=== PATIENT | female | born 1960 | race Caucasian/White ===

== ENCOUNTER → 2017-06-27 | Outpatient (REF) | payer BC ==
[~2017-06-27] MED LIST: CALTRATE; CHLOTHALIDONE; LORA0.5T; POTA20TA2; PROCHLORPERAZINE; PROPRANOLOL; THERGRAN; VICO5TAB
[2017-06-27 19:11] LABS: MEAN CORPUSCULAR HEMOGLOBIN 31.5 pg (27.0-33.0); MEAN CORPUSCULAR HGB CONC 32.7 g/dl (32.0-36.5); MEAN CORPUSCULAR VOLUME 96.3 fl (80.0-96.0); RED CELL DISTRIBUTION WIDTH 12.9 % (11.5-14.5); WHITE BLOOD COUNT 5.5 K/mm3 (4.0-10.0)
[2017-06-27 19:20] LABS: ALBUMIN 3.6 GM/DL (3.2-5.2); ALBUMIN/GLOBULIN RATIO 1.29 (1.00-1.93); ALKALINE PHOSPHATASE 96 U/L (45-117); ALT/SGPT 17 U/L (12-78); ANION GAP 11 MEQ/L (8-16); AST/SGOT 10 U/L (15-37); BILIRUBIN,TOTAL 0.3 MG/DL (0.2-1.0); BLOOD UREA NITROGEN 9 MG/DL (7-18); CALCIUM LEVEL 9.3 MG/DL (8.5-10.1); CARBON DIOXIDE LEVEL 26 MEQ/L (21-32); CHLORIDE LEVEL 109 MEQ/L (98-107); CREATININE FOR GFR 0.75 MG/DL (0.55-1.02); GLOMERULAR FILTRATION RATE > 60.0 (>51); GLUCOSE, FASTING 75 MG/DL (70-105); POTASSIUM SERUM 4.6 MEQ/L (3.5-5.1); SODIUM LEVEL 146 MEQ/L (136-145); TOTAL PROTEIN 6.4 GM/DL (6.4-8.2)
== END ==
LOC: M SFHCADAM 14:10
PROVIDERS: ATTEND Physician Assistant Medical
DX: I95.9 Hypotension, unspecified (principal); F41.9 Anxiety disorder, unspecified

== ENCOUNTER → 2017-07-15 | Outpatient (REF) | payer BC ==
[2017-07-15 13:54] LABS: ANION GAP 6 MEQ/L (8-16); BLOOD UREA NITROGEN 17 MG/DL (7-18); CALCIUM LEVEL 9.2 MG/DL (8.5-10.1); CARBON DIOXIDE LEVEL 25 MEQ/L (21-32); CHLORIDE LEVEL 112 MEQ/L (98-107); CREATININE FOR GFR 0.72 MG/DL (0.55-1.02); GLOMERULAR FILTRATION RATE > 60.0 (>51); GLUCOSE, FASTING 90 MG/DL (70-105); POTASSIUM SERUM 4.5 MEQ/L (3.5-5.1); SODIUM LEVEL 143 MEQ/L (136-145)
== END ==
LOC: M SFHCADAM 11:06
PROVIDERS: ATTEND Physician Assistant Medical
DX: I95.9 Hypotension, unspecified (principal)

== ENCOUNTER → 2017-12-30 | Outpatient (REF) | payer BC ==
[2017-12-30 20:41] LABS: BASO # 0.1 10^3/uL (0.0-0.2); BASO % 0.8 % (0.0-1.0); EOS # 0.3 10^3/uL (0.0-0.50); EOS % 4.7 % (0.0-3.0); HEMOGLOBIN 13.9 g/dl (12.0-16.0); IMMATURE GRANULOCYTE % 0.5 % (0-0); LYMPH # 2.9 10^3/uL (1.5-4.5); MEAN CORPUSCULAR HEMOGLOBIN 29.8 pg (27.0-33.0); MEAN CORPUSCULAR HGB CONC 31.6 g/dl (32.0-36.5); MEAN CORPUSCULAR VOLUME 94.2 fl (80.0-96.0); MONO # 0.4 10^3/uL (0.0-0.8); MONO % 7.3 % (0.0-5.0); NEUTROPHILS # 2.3 10^3/uL (1.8-7.7); NEUTROPHILS % 38.7 % (36.0-66.0); PLATELET COUNT, AUTOMATED 180 10^3/uL (150-450); RED BLOOD COUNT 4.67 10^6/uL (4.00-5.40)
[2017-12-30 20:57] LABS: ALBUMIN 3.8 GM/DL (3.2-5.2); ALBUMIN/GLOBULIN RATIO 1.36 (1.00-1.93); ALKALINE PHOSPHATASE 96 U/L (45-117); ALT/SGPT 14 U/L (12-78); ANION GAP 4 MEQ/L (8-16); AST/SGOT 11 U/L (7-37); BILIRUBIN,TOTAL 0.2 MG/DL (0.2-1.0); BLOOD UREA NITROGEN 17 MG/DL (7-18); CALCIUM LEVEL 9.2 MG/DL (8.5-10.1); CARBON DIOXIDE LEVEL 30 MEQ/L (21-32); CHLORIDE LEVEL 111 MEQ/L (98-107); CHOLESTEROL LEVEL 186 MG/DL (<200); CHOLESTEROL RISK RATIO 2.818 (<5); CREATININE FOR GFR 0.71 MG/DL (0.55-1.30); GLOMERULAR FILTRATION RATE > 60.0 (>51); GLUCOSE, FASTING 82 MG/DL (70-100); HDL CHOLESTEROL 66 MG/DL (>40); LDL CHOLESTEROL 103.6 MG/DL (<100); NON-HDL-C 120 MG/DL; POTASSIUM SERUM 4.3 MEQ/L (3.5-5.1); SODIUM LEVEL 145 MEQ/L (136-145); TOTAL PROTEIN 6.6 GM/DL (6.4-8.2); TRIGLYCERIDES LEVEL 82 MG/DL (<150)
== END ==
LOC: M SFHCADAM 16:06
DX: E55.9 Vitamin D deficiency, unspecified (principal); F41.9 Anxiety disorder, unspecified; I10 Essential (primary) hypertension; F17.210 Nicotine dependence, cigarettes, uncomplicated; E87.6 Hypokalemia
CPT/HCPCS: 84443

== ENCOUNTER 2018-04-08 10:40 | Emergency (ER) | payer BC ==
[2018-04-08 12:06] LABS: BASO # 0.1 10^3/uL (0.0-0.2); BASO % 0.8 % (0.0-1.0); EOS # 0.1 10^3/uL (0.0-0.50); EOS % 2.2 % (0.0-3.0); HEMATOCRIT 41.7 % (36.0-47.0); HEMOGLOBIN 13.6 g/dl (12.0-15.5); IMMATURE GRANULOCYTE % 0.5 % (0-3.0); LYMPH % 31.1 % (24.0-44.0); MEAN CORPUSCULAR HEMOGLOBIN 30.8 pg (27.0-33.0); MEAN CORPUSCULAR HGB CONC 32.6 g/dl (32.0-36.5); MEAN CORPUSCULAR VOLUME 94.3 fl (80.0-96.0); MONO # 0.4 10^3/uL (0.0-0.8); MONO % 6.7 % (0.0-5.0); NEUTROPHILS # 3.7 10^3/uL (1.8-7.7); NEUTROPHILS % 58.7 % (36.0-66.0); PLATELET COUNT, AUTOMATED 187 10^3/uL (150-450); RED BLOOD COUNT 4.42 10^6/uL (4.00-5.40); RED CELL DISTRIBUTION WIDTH 13.4 % (11.5-14.5); WHITE BLOOD COUNT 6.3 10^3/uL (4.0-10.0)
[2018-04-08 12:07] LABS: ANION GAP 2 MEQ/L (8-16); BLOOD UREA NITROGEN 11 MG/DL (7-18); CALCIUM LEVEL 9.5 MG/DL (8.5-10.1); CARBON DIOXIDE LEVEL 29 MEQ/L (21-32); CHLORIDE LEVEL 113 MEQ/L (98-107); CREATININE FOR GFR 0.73 MG/DL (0.55-1.30); GLOMERULAR FILTRATION RATE > 60.0 (>51); GLUCOSE, FASTING 94 MG/DL (70-100); SODIUM LEVEL 144 MEQ/L (136-145)
[2018-04-08] MEDS: ALPRAZolam 0.5 MG TAB PO (12:25)
== END 2018-04-08 16:20 | disposition home or self-care (01) ==
LOC: M ED 10:40
DX: R40.0 Somnolence (principal); T42.75XA Adverse effect of unspecified antiepileptic and sedative-hypnotic drugs, initial encounter; Y92.9 Unspecified place or not applicable; Y93.9 Activity, unspecified; F42.9 Obsessive-compulsive disorder, unspecified; F32.9 Major depressive disorder, single episode, unspecified; E66.9 Obesity, unspecified; F17.200 Nicotine dependence, unspecified, uncomplicated; J34.1 Cyst and mucocele of nose and nasal sinus; Z79.899 Other long term (current) drug therapy; Z88.0 Allergy status to penicillin
CPT/HCPCS: 70551

== ENCOUNTER → 2018-09-07 | Outpatient (REF) | payer BC ==
[2018-09-07 19:18] LABS: RHEUMATOID FACTOR QUANT < 10.0 IU/ML (<15.0); TOTAL PROTEIN 6.7 GM/DL (6.4-8.2)
[2018-09-07 19:29] LABS: FOLATE 17.6 NG/ML
[2018-09-07 19:55] LABS: ERYTHROCYTE SEDIMENTATION RATE 8 mm/hr (0-30)
[2018-09-08 14:13] LABS: ALBUMIN 4.24 GM/DL (3.29-5.55); ALBUMIN % 63.3 % (55.8-66.1); ALPHA-1-GLOBULINS 0.27 GM/DL (0.17-0.41); ALPHA-2-GLOBULINS 0.73 GM/DL (0.42-0.99); ALPHA-2-GLOBULINS % 10.9 % (7.1-11.8); BETA-1-GLOBULINS % 5.9 % (4.7-7.2); BETA-2-GLOBULINS 0.33 GM/DL (0.19-0.55); BETA-2-GLOBULINS % 4.9 % (3.2-6.5); GAMMA GLOBULINS 0.74 GM/DL (0.65-1.58)
[2018-09-12 08:42] LABS: ACETYLCHOLINE RCPTOR BINDING A < 0.03 nmol/L (0.00-0.24); ANTINUCLEAR ANTIBODIES DIRECT Negative (Negative); CERULOPLASMIN 27.5 mg/dL (19.0-39.0); COPPER PLASMA 114 ug/dL (72-166); LEAD BLOOD ADULT 1 ug/dL (0-4); MERCURY LEVEL 2.2 ug/L (0.0-14.9); STRIATIONAL ANTIBODIES Negative (Neg:<1:40); VITAMIN B1 LEVEL WHOLE BLOOD 96.8 nmol/L (66.5-200.0); VITAMIN B6,PYRIDOXAL PHOSPHATE 2.3 ug/L (2.0-32.8); VITAMIN E(ALPHA TOCOPHEROL) 10.1 mg/L (7.0-25.1); VITAMIN E(GAMMA TOCOPHEROL) 1.5 mg/L (0.5-5.5)
== END ==
LOC: M LABNEURO 13:21
DX: E26.89 Other hyperaldosteronism (principal)
CPT/HCPCS: 82525

== ENCOUNTER → 2018-12-23 | Outpatient (REF) | payer BC ==
[~2018-12-23] MED LIST changes: +ALPR2TAB3 PO; +ARIP1TAB2 PO; +POTA1TAB23 PO; +SERT-138 PO
[2018-12-23 17:33] LABS: THYROID STIMULATING HORMONE 2.06 uIU/ML (0.358-3.740)
[2018-12-26 00:06] LABS: ALDOLASE 5.9 U/L (3.3-10.3)
== END ==
LOC: M LABNEURO 13:39
PROVIDERS: ATTEND Psychiatry & Neurology Neurology
DX: G62.9 Polyneuropathy, unspecified (principal)

== ENCOUNTER → 2019-04-02 | Outpatient (REF) | payer BC ==
[2019-04-02 15:36] LABS: BASO # 0.1 10^3/uL (0.0-0.2); BASO % 0.9 % (0.0-1.0); EOS # 0.1 10^3/uL (0.0-0.50); EOS % 2.2 % (0.0-3.0); HEMOGLOBIN 12.8 g/dl (12.0-15.5); LYMPH % 35.2 % (24.0-44.0); MEAN CORPUSCULAR HEMOGLOBIN 29.4 pg (27.0-33.0); MEAN CORPUSCULAR HGB CONC 31.2 g/dl (32.0-36.5); MEAN CORPUSCULAR VOLUME 94.3 fl (80.0-96.0); MONO # 0.3 10^3/uL (0.0-0.8); MONO % 5.9 % (0.0-5.0); NEUTROPHILS # 3.2 10^3/uL (1.8-7.7); NEUTROPHILS % 55.6 % (36.0-66.0); PLATELET COUNT, AUTOMATED 210 10^3/uL (150-450); RED BLOOD COUNT 4.35 10^6/uL (4.00-5.40); WHITE BLOOD COUNT 5.8 10^3/uL (4.0-10.0)
[2019-04-02 16:06] LABS: ALBUMIN 3.8 GM/DL (3.2-5.2); ALT/SGPT 7 U/L (12-78); BILIRUBIN,TOTAL 0.4 MG/DL (0.2-1.0); BLOOD UREA NITROGEN 11 MG/DL (7-18); CALCIUM LEVEL 8.8 MG/DL (8.5-10.1); CARBON DIOXIDE LEVEL 28 MEQ/L (21-32); CHLORIDE LEVEL 110 MEQ/L (98-107); CHOLESTEROL LEVEL 174 MG/DL (<200); CHOLESTEROL RISK RATIO 2.718 (<5); GLOMERULAR FILTRATION RATE > 60.0 (>51); GLUCOSE, FASTING 79 MG/DL (70-100); HDL CHOLESTEROL 64 MG/DL (>40); LDL CHOLESTEROL 99 MG/DL (<100); NON-HDL-C 110 MG/DL; SODIUM LEVEL 141 MEQ/L (136-145); TOTAL 25(OH) VITAMIN D 23.8 NG/ML (30.0-100.0); TOTAL PROTEIN 6.8 GM/DL (6.4-8.2); TRIGLYCERIDES LEVEL 53 MG/DL (<150)
== END ==
LOC: M SFHCADAM 13:56
PROVIDERS: ATTEND Physician Assistant Medical
DX: R47.81 Slurred speech (principal); I10 Essential (primary) hypertension; E87.6 Hypokalemia; K59.01 Slow transit constipation; E55.9 Vitamin D deficiency, unspecified

== ENCOUNTER 2019-07-22 08:07 | Outpatient (RCR) | payer BC | END 2019-07-31 | LOC: M ST 08:07 | PROVIDERS: ATTEND Physician Assistant Medical | DX: Z51.89 Encounter for other specified aftercare (principal); G20 Parkinson's disease; R63.8 Other symptoms and signs concerning food and fluid intake; R47.81 Slurred speech; R26.81 Unsteadiness on feet; H83.2X9 Labyrinthine dysfunction, unspecified ear ==

== ENCOUNTER → 2019-08-04 | Outpatient (CLI) | payer BC ==
--- NOTE | 2019-08-04 16:13 | REP ---
COOKIE SWALLOW The procedure was performed under the direct supervision of Dr. Ochoa. The procedure was performed with Rosalind Barajas from speech pathology present. 5 ml aliquots of thin, nectar, fruit, solid, soft, honey, and puree consistency barium was administered. A barium pill was also administered. With thin, nectar and honey consistency barium there is laryngeal penetration. The detailed report of this examination will be provided by speech pathology. 1 minute of fluoroscopy time was utilized for this procedure. Reviewed by DEBBIE Hoff 08/04/2019 03:59 P Electronically Signed by Eugene Ochoa MD 08/04/2019 04:05 P
== END ==
LOC: M ST 10:21
PROVIDERS: ATTEND Physician Assistant Medical
DX: R13.12 Dysphagia, oropharyngeal phase (principal); R47.1 Dysarthria and anarthria

== ENCOUNTER 2019-08-24 10:38 | Outpatient (RCR) | payer BC | END 2019-08-30 | LOC: M ST 10:38 | PROVIDERS: ATTEND Physician Assistant Medical | DX: G20 Parkinson's disease (principal) ==

== ENCOUNTER → 2019-09-30 | Outpatient (RCR) | payer BC, MEDICAID | LOC: M ST 08-31 10:36 → M OT 09-28 10:30 → M ST 09-28 11:15 → M PT 09-28 12:30 → M OT 10:17 → M PT 10:17 → M OT 11:30 | PROVIDERS: ATTEND Physician Assistant Medical | DX: R26.81 Unsteadiness on feet (principal) ==

== ENCOUNTER 2019-10-21 10:13 | Outpatient (RCR) | payer MEDICAID, OTHER | END 2019-10-30 | LOC: M OT 10:13 → M PT 10:13 → M ST 10:13 | PROVIDERS: ATTEND Physician Assistant Medical | DX: Z47.89 Encounter for other orthopedic aftercare (principal) ==

== ENCOUNTER → 2019-10-22 | Outpatient (REF) | payer OTHER ==
[2019-10-22 13:08] LABS: BASO # 0.1 10^3/uL (0.0-0.2); BASO % 0.8 % (0.0-1.0); EOS # 0.1 10^3/uL (0.0-0.5); EOS % 1.1 % (0.0-3.0); HEMATOCRIT 44.8 % (36.0-47.0); HEMOGLOBIN 13.8 g/dl (12.0-15.5); LYMPH # 1.9 10^3/uL (1.5-5.0); LYMPH % 31.1 % (24.0-44.0); MEAN CORPUSCULAR HEMOGLOBIN 30.3 pg (27.0-33.0); MEAN CORPUSCULAR HGB CONC 30.8 g/dl (32.0-36.5); MEAN CORPUSCULAR VOLUME 98.5 fl (80.0-96.0); MONO # 0.4 10^3/uL (0.0-0.8); MONO % 6.4 % (0.0-5.0); NEUTROPHILS # 3.7 10^3/uL (1.5-8.5); NEUTROPHILS % 60.3 % (36.0-66.0); PLATELET COUNT, AUTOMATED 236 10^3/uL (150-450); RED BLOOD COUNT 4.55 10^6/uL (4.00-5.40); WHITE BLOOD COUNT 6.2 10^3/uL (4.0-10.0)
[2019-10-22 13:41] LABS: ALBUMIN 3.8 GM/DL (3.2-5.2); ALT/SGPT 12 U/L (12-78); BILIRUBIN,TOTAL 0.4 MG/DL (0.2-1.0); BLOOD UREA NITROGEN 16 MG/DL (7-18); CALCIUM LEVEL 9.5 MG/DL (8.5-10.1); CARBON DIOXIDE LEVEL 29 MEQ/L (21-32); CHLORIDE LEVEL 111 MEQ/L (98-107); CREATININE FOR GFR 0.77 MG/DL (0.55-1.30); GLOMERULAR FILTRATION RATE > 60.0 (>51); GLUCOSE, FASTING 74 MG/DL (70-100); POTASSIUM SERUM 4.4 MEQ/L (3.5-5.1); SODIUM LEVEL 144 MEQ/L (136-145); TOTAL 25(OH) VITAMIN D 28.3 NG/ML (30.0-100.0); TOTAL PROTEIN 6.9 GM/DL (6.4-8.2)
== END ==
LOC: M SFHCADAM 10:04
PROVIDERS: ATTEND Physician Assistant Medical
DX: G20 Parkinson's disease (principal); E87.6 Hypokalemia; E55.9 Vitamin D deficiency, unspecified; F41.0 Panic disorder [episodic paroxysmal anxiety]

== ENCOUNTER 2019-11-25 10:25 | Outpatient (RCR) | payer OTHER | END 2019-11-30 | LOC: M PT 10:25 | PROVIDERS: ATTEND Physician Assistant Medical | DX: G20 Parkinson's disease (principal) ==

== ENCOUNTER 2019-12-30 09:53 | Outpatient (RCR) | payer OTHER | END 2019-12-31 | LOC: M ST 09:53 | PROVIDERS: ATTEND Physician Assistant Medical | DX: G20 Parkinson's disease (principal); R26.81 Unsteadiness on feet ==

== ENCOUNTER → 2020-01-11 | Outpatient (CLI) | payer OTHER ==
--- NOTE | 2020-01-11 14:23 | REP ---
Clinical: Left hand pain Technique: AP, lateral, bilateral oblique views left hand . Findings: No acute fracture dislocation. Mild arthritic changes involving the first metacarpophalangeal and interphalangeal joints with subchondral sclerosis, minimal joint space narrowing, and very subtle early spurring. Impression: Mild arthritic changes involving the interphalangeal joints and first metacarpophalangeal joint. No acute fracture or dislocation. Electronically Signed by Carlos Javier MD 01/11/2020 02:15 P
== END ==
LOC: M ADAMS 13:29 → M ST 13:29
PROVIDERS: ATTEND Physician Assistant Medical
DX: M19.042 Primary osteoarthritis, left hand (principal)

== ENCOUNTER → 2020-01-13 | Outpatient (CLI) | payer OTHER ==
--- NOTE | 2020-01-13 17:21 | REP ---
COOKIE SWALLOW The procedure was performed under the direct supervision of Dr. Moore. The procedure was performed with Ruchi Aguero from speech pathology present. 5 ml aliquots of nectar, pudding, mixed fruit, soft and honey consistency barium was administered as well as a barium pill. With nectar consistency barium there is aspiration. The detailed report of this examination will be provided by speech pathology. 1 minute of fluoroscopy time was utilized for this procedure. Electronically Signed by DEBBIE Hoff 01/13/2020 02:31 P Electronically Signed by Tanner Moore MD 01/13/2020 05:13 P
== END ==
LOC: M ST 10:37
PROVIDERS: ATTEND Physician Assistant Medical
DX: G20 Parkinson's disease (principal)

== ENCOUNTER 2020-01-25 10:12 | Outpatient (RCR) | payer OTHER | END 2020-01-29 | LOC: M ST 10:12 | PROVIDERS: ATTEND Physician Assistant Medical | DX: G20 Parkinson's disease (principal) ==

== ENCOUNTER → 2020-02-07 | Outpatient (CLI) | payer OTHER ==
--- NOTE | 2020-02-08 02:59 | REP ---
Clinical: Trauma. Fall. Technique: Frontal view of the chest with four views of the left hemithorax. Findings: Chronic scoliosis noted. No obvious acute left anterolateral rib fracture identified. Impression: No obvious acute anterior left rib fracture identified. Electronically Signed by Carlos Javier MD 02/08/2020 02:51 A
== END ==
LOC: M ADAMS 09:50
PROVIDERS: ATTEND Physician Assistant
DX: S20.212A Contusion of left front wall of thorax, initial encounter (principal); X58.XXXA Exposure to other specified factors, initial encounter; Y92.9 Unspecified place or not applicable; Y93.9 Activity, unspecified

== ENCOUNTER → 2020-02-29 | Outpatient (RCR) | payer OTHER | LOC: M ST 02-01 10:16 | PROVIDERS: ATTEND Physician Assistant Medical | DX: Z51.89 Encounter for other specified aftercare (principal); R13.10 Dysphagia, unspecified; G20 Parkinson's disease ==

== ENCOUNTER → 2020-03-01 | Outpatient (CLI) | payer OTHER ==
[~2020-03-01] MED LIST changes: +E-Z-PAQUE 96% w/w SUSP 176GM BTL As Ordered ONE; +VARIBAR NECTAR 40% w/v 240ML SUSP BTL As Ordered ONE; +VARIBAR PUDDING 40% w/v 230ML TUBE As Ordered ONE
--- NOTE | 2020-03-01 11:26 | REP ---
Examination Requested: Cookie Swallow Reason For Exam: Dysphasia The procedure was performed by DEBBIE Rabago, under the direct supervision of Dr. Ochoa. The procedure was performed with Ruchi Aguero from speech pathology present. 5 ml aliquots of pudding, puree, nectar, and honey consistency barium was administered. Penetration was visualized with honey thick consistency barium. The detailed report of this examination will be provided by speech pathology. 0.6 minutes of fluoroscopy time was utilized for this procedure. Reviewed by DEBBIE Membreno 03/01/2020 10:38 A Electronically Signed by Eugene Ochoa MD 03/01/2020 11:18 A
== END ==
LOC: M RAD 08:13
PROVIDERS: ATTEND Physician Assistant Medical
DX: G20 Parkinson's disease (principal)

== ENCOUNTER → 2020-03-30 | Outpatient (REF) | payer OTHER ==
[~2020-03-30] MED LIST changes: -E-Z-PAQUE 96% w/w SUSP 176GM BTL As Ordered ONE; -VARIBAR NECTAR 40% w/v 240ML SUSP BTL As Ordered ONE; -VARIBAR PUDDING 40% w/v 230ML TUBE As Ordered ONE
[2020-03-30 19:26] LABS: AMORPHOUS SEDIMENT SMALL (NEGATIVE); APPEARANCE, URINE CLOUDY (CLEAR); BACTERIA, URINE AUTO 1+ (NEGATIVE); BILIRUBIN, URINE AUTO NEGATIVE (NEGATIVE); BLOOD, URINE BLOOD NEGATIVE (NEGATIVE); CALCIUM OXALATE CRYSTALS LARGE; COLOR, URINE YELLOW (YELLOW); GLUCOSE, URINE (UA) AUTO NEGATIVE (NEGATIVE); KETONE, URINE AUTO NEGATIVE (NEGATIVE); LEUKOCYTE ESTERASE, URINE AUTO TRACE (NEGATIVE); MUCUS, URINE SMALL (NEGATIVE); NITRITE, URINE AUTO POSITIVE (NEGATIVE); PROTEIN, URINE AUTO NEGATIVE (NEGATIVE); RBC, URINE AUTO 3 /HPF (0-3); SPECIFIC GRAVITY URINE AUTO 1.024 (1.002-1.035); SQUAMOUS EPITHELIAL CELL UR AU 2 /HPF (0-6); WBC, URINE AUTO 14 /HPF (0-3)
== END ==
LOC: M SFHCADAM 14:35
PROVIDERS: ATTEND Physician Assistant Medical
DX: N30.01 Acute cystitis with hematuria (principal); R30.0 Dysuria

== ENCOUNTER → 2020-03-30 | Outpatient (RCR) | payer OTHER | LOC: M ST 03-14 09:16 | PROVIDERS: ATTEND Physician Assistant Medical | DX: G20 Parkinson's disease (principal) ==

== ENCOUNTER 2020-04-13 09:00 | Outpatient (RCR) | payer OTHER | END 2020-04-30 | LOC: M ST 09:00 | PROVIDERS: ATTEND Physician Assistant Medical | DX: G20 Parkinson's disease (principal); R47.89 Other speech disturbances ==

== ENCOUNTER 2020-05-24 14:50 | Emergency (ER) | payer OTHER ==
[~2020-05-24] VITALS: Ht 175.3 cm; Wt 61.4 kg
[2020-05-24] MEDS ORDERED: ESCI20TA PO (15:01)
[2020-05-24] MEDS ORDERED: LORA2CON5 PO (15:01)
[2020-05-24] MEDS ORDERED: BUSP15TA47 PO (15:01)
[2020-05-24] MEDS ORDERED: GABA-845 PO (15:01)
[2020-05-24 16:04] LABS: BASO % 0.6 % (0.0-1.0); EOS # 0.2 10^3/uL (0.0-0.5); EOS % 3.4 % (0.0-3.0); HEMATOCRIT 43.4 % (36.0-47.0); HEMOGLOBIN 13.7 g/dl (12.0-15.5); LYMPH % 30.2 % (24.0-44.0); MEAN CORPUSCULAR HEMOGLOBIN 29.6 pg (27.0-33.0); MEAN CORPUSCULAR HGB CONC 31.6 g/dl (32.0-36.5); MEAN CORPUSCULAR VOLUME 93.7 fl (80.0-96.0); MONO # 0.5 10^3/uL (0.0-0.8); MONO % 7.1 % (0.0-5.0); NEUTROPHILS # 3.8 10^3/uL (1.5-8.5); NEUTROPHILS % 58.2 % (36.0-66.0); PLATELET COUNT, AUTOMATED 199 10^3/uL (150-450); RED BLOOD COUNT 4.63 10^6/uL (4.00-5.40); WHITE BLOOD COUNT 6.5 10^3/uL (4.0-10.0)
[2020-05-24 16:26] LABS: BLOOD UREA NITROGEN 17 MG/DL (7-18); CALCIUM LEVEL 9.5 MG/DL (8.5-10.1); CARBON DIOXIDE LEVEL 26 MEQ/L (21-32); CHLORIDE LEVEL 112 MEQ/L (98-107); CREATININE FOR GFR 0.66 MG/DL (0.55-1.30); GLOMERULAR FILTRATION RATE > 60.0 (>51); GLUCOSE, FASTING 98 MG/DL (70-100); MAGNESIUM LEVEL 2.1 MG/DL (1.8-2.4); POTASSIUM SERUM 4.2 MEQ/L (3.5-5.1); SODIUM LEVEL 144 MEQ/L (136-145)
[2020-05-24] MEDS ORDERED: NS 500 ML IV ONE (16:30)
--- NOTE | 2020-05-24 16:38 | REP ---
CT brain: 05/24/2020. Indication: Head trauma. Seizure. Technique: Unenhanced axial CT images of the brain were obtained from skull base to vertex. Comparison: 04/08/2019. Findings: There is no acute intracranial hemorrhage, acute cortical infarction, mass effect, hydrocephalus or acute calvarial fracture. Impression: No acute intracranial process. Electronically Signed by Epi Stafford DO 05/24/2020 04:29 P
--- NOTE | 2020-05-24 16:42 | REP ---
Portable chest x-ray: Single view. History: Syncope/near syncope. Cough. Comparison chest x-ray: February 07, 2020. Findings: Monitoring electrodes overlie the chest. There is a levoconvex upper thoracic curve. The lungs are well inflated and clear. The pleural angles are sharp. Heart is not enlarged. Pulmonary vasculature is not increased. Impression: Hyperinflation. Scoliosis in the thoracic spine. Otherwise no acute disease. Electronically Signed by Tanner Moore MD 05/24/2020 04:33 P
--- NOTE | 2020-05-24 17:00 | REP ---
CT cervical spine: 05/24/2020. Indication: Cervical spine trauma. Technique: Unenhanced axial CT images of the cervical spine were performed with coronal and sagittal reconstructions provided. Comparison: None. Findings: There is no acute fracture, subluxation or dislocation. There is straightening of the cervical lordosis. No lytic or blastic lesions are present. Bridging osteophytes are noted anteriorly particularly at the C4/C5 and C5/C6. There is no evidence of hemorrhage or additional acute post traumatic. Soft tissue injuries within the spinal canal. Impression: No acute cervical spine osseous injuries. Electronically Signed by Epi Stafford DO 05/24/2020 04:51 P
[2020-05-24] MEDS ORDERED: EEG (17:02)
[2020-05-24 17:30] VITALS: BP 126/78
--- NOTE | 2020-05-24 20:41 | ECGEPIP ---
[facility] - ED Test Date: 2020-05-24 Pat Name: JEANNA CIFUENTES Department: Room: - Gender: Female Risk Management Specialist: sarmad : 1960 Requested By: VANESSA Cam Order Number: [id number] Reading MD: Lexx Egan Measurements Intervals [place] Rate: 63 P: 86 NV: 161 QRS: 81 QRSD: 85 T: 63 QT: 388 QTc: 400 Interpretive Statements SINUS RHYTHM INCOMPLETE RIGHT BUNDLE BRANCH BLOCK SEPTAL MYOCARDIAL INFARCTION, OF INDETERMINATE AGE NO PRIORS FOR COMPARISON Electronically Signed on 05-24-2020 20:41:16 EDT by Lexx Egan
== END 2020-05-24 17:46 | disposition home or self-care (01) ==
LOC: M ED 14:50
DX: G20 Parkinson's disease (principal); I44.7 Left bundle-branch block, unspecified; I10 Essential (primary) hypertension; F41.9 Anxiety disorder, unspecified; Z79.899 Other long term (current) drug therapy; Z88.0 Allergy status to penicillin; F17.210 Nicotine dependence, cigarettes, uncomplicated

== ENCOUNTER → 2020-05-30 | Outpatient (RCR) | payer OTHER ==
[~2020-05-30] MED LIST changes: +BUSP15TA47 PO; +EEG; +ESCI20TA PO; +GABA-845 PO; +LORA2CON5 PO
== END ==
LOC: M ST 05-02 09:04
PROVIDERS: ATTEND Physician Assistant Medical
DX: G20 Parkinson's disease (principal)

== ENCOUNTER → 2020-05-31 | Outpatient (CLI) | payer OTHER ==
--- NOTE | 2020-05-31 16:15 | EEG ---
DATE OF PROCEDURE: 05/31/2020 REFERRING PHYSICIAN: Dr. Millicent King DIAGNOSIS: Seizure. EEG#: [id number] HISTORY: The patient is a 59-year-old woman with history of anxiety, panic attacks who had a possible seizure per history. The patient is taking Lexapro, BuSpar, gabapentin, lorazepam. TECHNICAL DESCRIPTION: This digital EEG was recorded by 21 scalp ear and two EKG electrodes and was reviewed in bipolar and referential montages following reformatting 10-20 international electrode placement system. INTERPRETATION: The patient was noted to be mostly in awake state during this EEG. Resting awake background rhythm consisted of 11 Hz alpha activity measuring 10-20 microvolts in amplitude, which was symmetric and reactive to eye opening. Anteriorly low voltage mixed frequency and beta activity was noted likely due to medication effect. No sleep was achieved. Hyperventilation could not be performed. Photic stimulation remained unremarkable. EKG was dysfunctional throughout this study. No focal, lateralizing or epileptiform abnormalities were seen. No relevant clinical activity was noted. CONCLUSION: This EEG in awake state is within normal limits. Excessive beta activity is likely due to medication effect. MTDD
== END ==
LOC: M SLEEP 08:04
PROVIDERS: ATTEND Emergency Medicine
DX: R56.9 Unspecified convulsions (principal)

== ENCOUNTER 2020-07-11 13:20 | Emergency (ER) | payer OTHER ==
[~2020-07-11 13:20] MED LIST changes: +PANTOPRAZOLE 40MG VIAL (C9113 PER 1) As Ordered ONE; +PANTOPRAZOLE 40MG VIAL (C9113 PER 1) ONE
--- NOTE | 2020-08-17 14:45 | ECGEPIP ---
SINUS RHYTHM ARTIFACT SEE SCANNED DOWNTIME REPORT MTDD
[2020-08-26 10:24] LABS: BASO % 0.5 % (0.0-1.0); EOS # 0.1 10^3/uL (0.0-0.5); EOS % 1.3 % (0.0-3.0); HEMATOCRIT 43.1 % (36.0-47.0); LYMPH % 30.6 % (24.0-44.0); MEAN CORPUSCULAR HEMOGLOBIN 30.2 pg (27.0-33.0); MEAN CORPUSCULAR HGB CONC 32.5 g/dl (32.0-36.5); MEAN CORPUSCULAR VOLUME 93.1 fl (80.0-96.0); MONO # 0.4 10^3/uL (0.0-0.8); MONO % 5.9 % (0.0-5.0); NEUTROPHILS # 3.9 10^3/uL (1.5-8.5); NEUTROPHILS % 61.5 % (36.0-66.0); PLATELET COUNT, AUTOMATED 187 10^3/uL (150-450); RED BLOOD COUNT 4.63 10^6/uL (4.00-5.40); WHITE BLOOD COUNT 6.4 10^3/uL (4.0-10.0)
[2020-08-26 10:31] LABS: INR 0.92; PROTHROMBIN TIME 12.5 SECONDS (12.5-14.3)
[2020-08-26 11:25] LABS: APPEARANCE, URINE CLEAR (CLEAR); BACTERIA, URINE AUTO 1+ (NEGATIVE); BILIRUBIN, URINE AUTO NEGATIVE (NEGATIVE); BLOOD, URINE BLOOD NEGATIVE (NEGATIVE); COLOR, URINE YELLOW (YELLOW); GLUCOSE, URINE (UA) AUTO NEGATIVE (NEGATIVE); KETONE, URINE AUTO NEGATIVE (NEGATIVE); LEUKOCYTE ESTERASE, URINE AUTO 1+ (NEGATIVE); NITRITE, URINE AUTO POSITIVE (NEGATIVE); PROTEIN, URINE AUTO NEGATIVE (NEGATIVE); RBC, URINE AUTO 1 /HPF (0-3); SPECIFIC GRAVITY URINE AUTO 1.005 (1.002-1.035); SQUAMOUS EPITHELIAL CELL UR AU 0 /HPF (0-6); UROBILINOGEN, URINE AUTO 0.2 mg/dL (0.0-2.0); WBC, URINE AUTO 1 /HPF (0-3)
[2020-09-29 10:52] LABS: ALBUMIN 3.5 GM/DL (3.2-5.2); ALT/SGPT 14 U/L (12-78); BILIRUBIN,TOTAL 0.4 MG/DL (0.2-1.0); BLOOD UREA NITROGEN 11 MG/DL (7-18); CALCIUM LEVEL 9.1 MG/DL (8.8-10.2); CARBON DIOXIDE LEVEL 28 MEQ/L (21-32); CHLORIDE LEVEL 111 MEQ/L (98-107); CREATININE FOR GFR 0.59 MG/DL (0.55-1.30); GLOMERULAR FILTRATION RATE > 60.0 (>45); GLUCOSE, FASTING 94 MG/DL (70-100); LIPASE 74 U/L (73-393); SODIUM LEVEL 145 MEQ/L (136-145); TOTAL PROTEIN 6.2 GM/DL (6.4-8.2)
== END 2020-07-11 15:49 | disposition home or self-care (01) ==
LOC: M ED 13:20
DX: K92.2 Gastrointestinal hemorrhage, unspecified (principal); F41.9 Anxiety disorder, unspecified; F33.9 Major depressive disorder, recurrent, unspecified; G35 Multiple sclerosis; G20 Parkinson's disease; F42.9 Obsessive-compulsive disorder, unspecified; Z88.0 Allergy status to penicillin; Z79.899 Other long term (current) drug therapy
CPT/HCPCS: 71046; 74176; 80053; 81001; 83690; 85025; 85610; 93005; 96374; 99284; C9113

== ENCOUNTER → 2020-09-05 | Outpatient (REF) | payer OTHER ==
[~2020-09-05] MED LIST changes: -PANTOPRAZOLE 40MG VIAL (C9113 PER 1) As Ordered ONE; -PANTOPRAZOLE 40MG VIAL (C9113 PER 1) ONE
== END ==
LOC: M LAB REF 16:30
PROVIDERS: ATTEND Surgery
DX: L72.3 Sebaceous cyst (principal)

== ENCOUNTER → 2020-10-12 | Outpatient (CLI) | payer SELFPAY | LOC: M LABSMTC 14:12 | PROVIDERS: ATTEND Pediatrics | DX: Z20.828 Contact with and (suspected) exposure to other viral communicable diseases (principal) ==

== ENCOUNTER 2022-04-04 10:31 | Emergency (ER) | payer OTHER, SELFPAY ==
[~2022-04-04] VITALS: Ht 175.3 cm; Wt 61.4 kg
[~2022-04-04 10:31] MED LIST changes: -ARIP1TAB2 PO; +ARIP1TAB43 PO; -ESCI20TA PO; +ESCI20TA16 PO; +GABA-283 PO; -GABA-845 PO
[2022-04-04] MEDS ORDERED: MIRT1TAB (10:38)
[2022-04-04] MEDS ORDERED: DIAZ10TA2 (10:38)
[2022-04-04] MEDS ORDERED: OMEP40CA5 (10:38)
[2022-04-04 11:16] LABS: VENOUS O2 SATURATION 72.8 % (60.0-80.0); VENOUS PARTIAL PRESSURE CO2 56.3 mmHg (38.0-50.0); VENOUS PARTIAL PRESSURE O2 35.7 mmHg (30.0-50.0); VENOUS PH 7.345 UNITS (7.330-7.430); VENOUS STANDARD HCO3 26.5 MEQ/L; VENOUS TOTAL CO2 31.8 MEQ/L (24.0-28.0)
[2022-04-04 11:25] LABS: BASO # 0.1 10^3/uL (0.0-0.2); BASO % 0.4 % (0.0-1.0); EOS % 0.1 % (0.0-3.0); HEMATOCRIT 40.5 % (36.0-47.0); HEMOGLOBIN 12.3 g/dl (12.0-15.5); LYMPH # 1.8 10^3/uL (1.5-5.0); LYMPH % 13.6 % (24.0-44.0); MEAN CORPUSCULAR HEMOGLOBIN 29.5 pg (27.0-33.0); MEAN CORPUSCULAR HGB CONC 30.4 g/dl (32.0-36.5); MEAN CORPUSCULAR VOLUME 97.1 fl (80.0-96.0); MONO # 1.5 10^3/uL (0.0-0.8); MONO % 11.4 % (2.0-8.0); NEUTROPHILS # 9.7 10^3/uL (1.5-8.5); NEUTROPHILS % 74.1 % (36.0-66.0); PLATELET COUNT, AUTOMATED 191 10^3/uL (150-450); RED BLOOD COUNT 4.17 10^6/uL (4.00-5.40); WHITE BLOOD COUNT 13.1 10^3/uL (4.0-10.0)
[2022-04-04] MEDS ORDERED: LevoFLOXacin IV 500 MG in IV 1 EA IV ONE (12:15)
[2022-04-04 12:26] LABS: ALT/SGPT 12 U/L (12-78); BILIRUBIN,DIRECT < 0.1 MG/DL (0.0-0.2); BILIRUBIN,TOTAL 0.3 MG/DL (0.2-1.0); BLOOD UREA NITROGEN 19 MG/DL (7-18); CALCIUM LEVEL 9.8 MG/DL (8.8-10.2); CARBON DIOXIDE LEVEL 32 MEQ/L (21-32); CHLORIDE LEVEL 106 MEQ/L (98-107); CREATININE FOR GFR 0.59 MG/DL (0.55-1.30); GLOMERULAR FILTRATION RATE > 60.0 (>45); GLUCOSE, FASTING 109 MG/DL (70-100); NT-PRO BNP 834 PG/ML (<125); POTASSIUM SERUM 4.2 MEQ/L (3.5-5.1); SODIUM LEVEL 144 MEQ/L (136-145); TOTAL PROTEIN 6.2 GM/DL (6.4-8.2)
[2022-04-04] MEDS ORDERED: NS 1,840 ML in IV 1 EA IV ONE (12:40)
[2022-04-04] MEDS ORDERED: LevoFLOXacin IV 250 MG in IV 1 EA IV ONE (12:55)
[2022-04-04] MEDS ORDERED: LEVO750T14 PO (12:59)
[2022-04-04 14:30] VITALS: BP 97/64
== END 2022-04-04 14:47 | disposition left against medical advice (07) ==
LOC: M ED 10:31
DX: N39.0 Urinary tract infection, site not specified (principal); J18.9 Pneumonia, unspecified organism; I10 Essential (primary) hypertension; G20 Parkinson's disease; Z79.899 Other long term (current) drug therapy; Z88.0 Allergy status to penicillin; F17.210 Nicotine dependence, cigarettes, uncomplicated
CPT/HCPCS: 71045; 74176; 80048; 80076; 81001; 82803; 83605; 83880; 84443; 85025; 87040; 87088; 87186; 87486; 87581; 87633; 87798; 93005; 93041; 96365; 96367; 99285; J1956

== ENCOUNTER 2022-08-16 16:08 | Inpatient (IN) | payer OTHER ==
[~2022-08-16] VITALS: Ht 165.1 cm; Wt 80.4 kg
[~2022-08-16 16:08] MED LIST changes: +DIAZ10TA2 PO; +LEVO750T14 PO; +MIRT1TAB PO; +OMEP40CA5 PO
[2022-08-16 16:35] VITALS: O2SAT 93
[2022-08-16 16:53] LABS: BASO # 0.1 10^3/uL (0.0-0.2); BASO % 0.6 % (0.0-1.0); EOS % 0.1 % (0.0-3.0); HEMATOCRIT 45.9 % (36.0-47.0); HEMOGLOBIN 13.8 g/dl (12.0-15.5); LYMPH # 1.2 10^3/uL (1.5-5.0); LYMPH % 13.5 % (24.0-44.0); MEAN CORPUSCULAR HEMOGLOBIN 29.2 pg (27.0-33.0); MEAN CORPUSCULAR HGB CONC 30.1 g/dl (32.0-36.5); MONO # 0.9 10^3/uL (0.0-0.8); MONO % 10.9 % (2.0-8.0); NEUTROPHILS # 6.4 10^3/uL (1.5-8.5); NEUTROPHILS % 74.3 % (36.0-66.0); PLATELET COUNT, AUTOMATED 196 10^3/uL (150-450); RED BLOOD COUNT 4.73 10^6/uL (4.00-5.40); WHITE BLOOD COUNT 8.6 10^3/uL (4.0-10.0)
[2022-08-16 17:19] LABS: INR 1.07; PROTHROMBIN TIME 14.4 SECONDS (12.7-14.5)
[2022-08-16 17:35] LABS: ALBUMIN 2.9 GM/DL (3.2-5.2); ALT/SGPT 10 U/L (12-78); BILIRUBIN,DIRECT 0.1 MG/DL (0.0-0.2); BILIRUBIN,TOTAL 0.3 MG/DL (0.2-1.0); BLOOD UREA NITROGEN 24 MG/DL (7-18); CALCIUM LEVEL 9.2 MG/DL (8.8-10.2); CARBON DIOXIDE LEVEL 37 MEQ/L (21-32); CHLORIDE LEVEL 106 MEQ/L (98-107); CREATININE FOR GFR 0.47 MG/DL (0.55-1.30); GLOMERULAR FILTRATION RATE > 60.0 (>45); GLUCOSE, FASTING 136 MG/DL (70-100); NT-PRO BNP 498 PG/ML (<125); SODIUM LEVEL 142 MEQ/L (136-145); THYROXINE (T4) 6.6 UG/DL (4.5-12.0); TOTAL PROTEIN 6.2 GM/DL (6.4-8.2)
[2022-08-16 17:59] LABS: CK-MB VALUE MASS < 1.0 NG/ML (<3.6); CPK CREATINE PHOSPHOKINASE 27 U/L (26-192)
[2022-08-16] MEDS ORDERED: ISOVUE-370 76% 100ML VIAL As Ordered ONE (18:06)
[2022-08-16] MEDS ORDERED: MOXIFLOXACIN HCL 400 MG in IV 1 EA IV ONE (18:15)
[2022-08-16 18:30] LABS: CK-MB VALUE MASS < 1.0 NG/ML (<3.6); CPK CREATINE PHOSPHOKINASE 30 U/L (26-192); MB/CK RELATIVE INDEX 3.33 (< OR =4)
[2022-08-16] MEDS ORDERED: ACETAMINOPHEN 650 MG SUPP PR ONE (18:55)
[2022-08-16] MEDS ORDERED: PROPOFOL 1,000 MG/100 ML VIAL As Ordered ONE (19:41)
[2022-08-16] MEDS ORDERED: ROCURONIUM BROMIDE 50 MG/5 ML VIAL IV ONE (19:45)
[2022-08-16] MEDS: propofoL 1,000 MG in IV 1 EA IV SCH (19:45)
[2022-08-16] MEDS ORDERED: ETOMIDATE INJ 20MG/10ML VIAL IV ONE (19:45)
[2022-08-16] MEDS ORDERED: NS 2,260 ML in IV 1 EA IV ONE (20:05)
[2022-08-16] MEDS ORDERED: TRAZ-257 PO (21:01)
[2022-08-16] MEDS ORDERED: LEXA1TAB2 PO (21:01)
[2022-08-16] MEDS ORDERED: HOME MED LIST COMPLETE! XX SCH (21:05)
[2022-08-16] MEDS: LR 1,000 ML IV SCH (21:50)
[2022-08-16] MEDS: PANTOPRAZOLE 40MG VIAL IV SCH (22:05)
[2022-08-16] MEDS: ENOXAPARIN 80MG/0.8ML SYRINGE (J1650 PER 10MG) SC SCH (22:24)
[2022-08-16 23:42] LABS: ABG BASE EXCESS 2.3 (-2.0-2.0); ABG HCO3 29.4 MEQ/L (22.0-26.0); ABG O2 SATURATION 98.1 % (95.0-99.0); ABG PARTIAL PRESSURE CO2 56.3 mmHg (35.0-45.0); ABG STANDARD HCO3 26.6 MEQ/L (22.0-26.0); ABG TOTAL CO2 31.1 MEQ/L (23.0-31.0); ABG pH (ARTERIAL) 7.335 UNITS (7.350-7.450)
[2022-08-17] VITALS (51 sets, daily range): BP systolic 75–135; BP diastolic 48–81
[2022-08-17] MEDS: propofoL 1,000 MG in IV 1 EA IV SCH ×2 (04:37→18:58)
[2022-08-17] MEDS: MIDAZOLAM 100MG/100ML-0.9%NACL 100 MG in IV 1 EA IV SCH ×2 (05:30→19:17)
[2022-08-17] MEDS: LR 1,000 ML IV SCH (06:10)
[2022-08-17 07:24] LABS: HEMATOCRIT 41.2 % (36.0-47.0); HEMOGLOBIN 12.4 g/dl (12.0-15.5); MEAN CORPUSCULAR HEMOGLOBIN 28.7 pg (27.0-33.0); MEAN CORPUSCULAR HGB CONC 30.1 g/dl (32.0-36.5); MEAN CORPUSCULAR VOLUME 95.4 fl (80.0-96.0); PLATELET COUNT, AUTOMATED 156 10^3/uL (150-450); RED BLOOD COUNT 4.32 10^6/uL (4.00-5.40); WHITE BLOOD COUNT 7.7 10^3/uL (4.0-10.0)
[2022-08-17] MEDS: IPRATROPIUM 0.5MG/ALBUTEROL 2.5MG INH SOL UD 3ML (DUONEB) NEB SCH ×4 (08:00→19:41)
[2022-08-17 08:06] LABS: BASO % 0.5 % (0.0-1.0); EOS # 0.1 10^3/uL (0.0-0.5); EOS % 1.3 % (0.0-3.0); LYMPH # 0.9 10^3/uL (1.5-5.0); LYMPH % 11.7 % (24.0-44.0); MONO % 12.6 % (2.0-8.0); NEUTROPHILS # 5.5 10^3/uL (1.5-8.5); NEUTROPHILS % 73.4 % (36.0-66.0)
[2022-08-17 08:12] LABS: ALBUMIN 2.3 GM/DL (3.2-5.2); ALT/SGPT 7 U/L (12-78); BILIRUBIN,TOTAL 0.6 MG/DL (0.2-1.0); BLOOD UREA NITROGEN 20 MG/DL (7-18); CALCIUM LEVEL 8.4 MG/DL (8.8-10.2); CARBON DIOXIDE LEVEL 30 MEQ/L (21-32); CHLORIDE LEVEL 112 MEQ/L (98-107); CREATININE FOR GFR 0.28 MG/DL (0.55-1.30); GLOMERULAR FILTRATION RATE > 60.0 (>45); GLUCOSE, FASTING 93 MG/DL (70-100); MAGNESIUM LEVEL 1.8 MG/DL (1.8-2.4); POTASSIUM SERUM 3.3 MEQ/L (3.5-5.1); SODIUM LEVEL 144 MEQ/L (136-145)
[2022-08-17] MEDS ORDERED: MIDAZOLAM INJ 2MG/2ML VIAL (J2250 PER 1MG) IV PRN (08:35)
[2022-08-17 09:03] LABS: ABG HCO3 29.7 MEQ/L (22.0-26.0); ABG O2 SATURATION 96.4 % (95.0-99.0); ABG PARTIAL PRESSURE CO2 39.9 mmHg (35.0-45.0); ABG PARTIAL PRESSURE O2 66.9 mmHg (75.0-100.0); ABG STANDARD HCO3 29.8 MEQ/L (22.0-26.0); ABG TOTAL CO2 30.9 MEQ/L (23.0-31.0)
[2022-08-17] MEDS ORDERED: propofoL 1,000 MG in IV 1 EA IV SCH (09:15)
[2022-08-17] MEDS: ENOXAPARIN 80MG/0.8ML SYRINGE (J1650 PER 10MG) SC SCH ×2 (09:49→22:27)
[2022-08-17] MEDS: CHLORHEXIDINE GLUCONATE 0.12 % 15ML UDC (PERIDEX ORAL RINSE) MT SCH ×2 (09:49→20:15)
[2022-08-17] MEDS ORDERED: VECURONIUM BROMIDE 10MG VIAL ONE (10:02)
[2022-08-17] MEDS ORDERED: ETOMIDATE INJ 20MG/10ML VIAL ONE (10:02)
[2022-08-17] MEDS: MULTIVITAMIN/MINERALS LIQUID 15ML ORAL SYRINGE NG SCH (11:12)
[2022-08-17] MEDS ORDERED: NS 1,000 ML IV ONE ×2 (13:00→16:00)
[2022-08-17] MEDS: MORPHINE 4 MG/ML 1ML VIAL/SYRINGE IV PRN ×2 (14:21→22:28)
[2022-08-17] MEDS ORDERED: MIDAZOLAM 5MG/ML 1ML VIAL (J2250 PER 1MG) As Ordered ONE (15:51)
[2022-08-17] MEDS ORDERED: MIDAZOLAM 5MG/ML 1ML VIAL (J2250 PER 1MG) IV ONE (16:00)
[2022-08-17] MEDS: KCL 40MEQ in NS 1000ML 1,000 ML IV SCH (16:30)
[2022-08-17] MEDS ORDERED: MIDAZOLAM INJ 2MG/2ML VIAL (J2250 PER 1MG) IV STA (17:07)
[2022-08-17] MEDS ORDERED: VECURONIUM BROMIDE 10MG VIAL As Ordered ONE (17:07)
[2022-08-17] MEDS ORDERED: VECURONIUM BROMIDE 10MG VIAL IV STA (17:07)
[2022-08-17] MEDS ORDERED: MOXIFLOXACIN HCL 400 MG in IV 1 EA IV SCH (18:00)
[2022-08-17] MEDS ORDERED: SODIUM CHLORIDE 0.9% 1000ML IV ONE (18:15)
[2022-08-17] MEDS: PANTOPRAZOLE 40MG VIAL IV SCH (20:15)
[2022-08-17] MEDS: NOREPINEPHRINE/DEXTROSE 8 MG in IV 492 EA IV SCH (21:21)
[2022-08-18] VITALS (85 sets, daily range): BP systolic 81–138; BP diastolic 50–75
[2022-08-18] MEDS: KCL 40MEQ in NS 1000ML 1,000 ML IV SCH ×2 (02:25→12:29)
[2022-08-18] MEDS: propofoL 1,000 MG in IV 1 EA IV SCH ×3 (04:30→19:43)
[2022-08-18] MEDS: MIDAZOLAM 100MG/100ML-0.9%NACL 100 MG in IV 1 EA IV SCH ×3 (04:56→17:52)
[2022-08-18 05:27] LABS: BASO # 0.1 10^3/uL (0.0-0.2); BASO % 0.4 % (0.0-1.0); EOS % 0.2 % (0.0-3.0); HEMATOCRIT 39.7 % (36.0-47.0); HEMOGLOBIN 12.1 g/dl (12.0-15.5); LYMPH # 1.1 10^3/uL (1.5-5.0); MEAN CORPUSCULAR HEMOGLOBIN 28.9 pg (27.0-33.0); MEAN CORPUSCULAR HGB CONC 30.5 g/dl (32.0-36.5); MONO # 1.4 10^3/uL (0.0-0.8); MONO % 11.3 % (2.0-8.0); NEUTROPHILS # 9.4 10^3/uL (1.5-8.5); NEUTROPHILS % 78.5 % (36.0-66.0); PLATELET COUNT, AUTOMATED 171 10^3/uL (150-450); RED BLOOD COUNT 4.18 10^6/uL (4.00-5.40)
[2022-08-18 05:49] LABS: BLOOD UREA NITROGEN 19 MG/DL (7-18); CALCIUM LEVEL 7.7 MG/DL (8.8-10.2); CARBON DIOXIDE LEVEL 29 MEQ/L (21-32); CHLORIDE LEVEL 114 MEQ/L (98-107); CREATININE FOR GFR 0.34 MG/DL (0.55-1.30); GLOMERULAR FILTRATION RATE > 60.0 (>45); GLUCOSE, FASTING 116 MG/DL (70-100); MAGNESIUM LEVEL 1.8 MG/DL (1.8-2.4); POTASSIUM SERUM 3.5 MEQ/L (3.5-5.1); SODIUM LEVEL 146 MEQ/L (136-145)
[2022-08-18] MEDS: IPRATROPIUM 0.5MG/ALBUTEROL 2.5MG INH SOL UD 3ML (DUONEB) NEB SCH ×4 (07:27→19:58)
[2022-08-18 08:33] LABS: ABG BASE EXCESS 0.5 (-2.0-2.0); ABG HCO3 26.5 MEQ/L (22.0-26.0); ABG O2 SATURATION 98.9 % (95.0-99.0); ABG PARTIAL PRESSURE CO2 48.1 mmHg (35.0-45.0); ABG PARTIAL PRESSURE O2 103.7 mmHg (75.0-100.0); ABG pH (ARTERIAL) 7.359 UNITS (7.350-7.450)
[2022-08-18] MEDS: ENOXAPARIN 80MG/0.8ML SYRINGE (J1650 PER 10MG) SC SCH ×2 (09:52→21:10)
[2022-08-18] MEDS: MULTIVITAMIN/MINERALS LIQUID 15ML ORAL SYRINGE NG SCH (09:52)
[2022-08-18] MEDS: CHLORHEXIDINE GLUCONATE 0.12 % 15ML UDC (PERIDEX ORAL RINSE) MT SCH ×2 (09:52→21:09)
[2022-08-18] MEDS: PIPERACILLIN/TAZOBACTAM SOD 3.375 GM in D5W MINI-BAG PLUS 50 ML IV SCH ×3 (10:35→21:12)
[2022-08-18] MEDS: MORPHINE 4 MG/ML 1ML VIAL/SYRINGE IV PRN ×2 (12:22→21:11)
[2022-08-18] MEDS ORDERED: MAGNESIUM GLUCONATE 500 MG TAB GT ONE (15:00)
[2022-08-18] MEDS: PANTOPRAZOLE 40MG VIAL IV SCH (21:11)
[2022-08-18] MEDS: NOREPINEPHRINE/DEXTROSE 8 MG in IV 492 EA IV SCH (21:21)
[2022-08-19] VITALS (77 sets, daily range): BP systolic 81–143; BP diastolic 47–79
[2022-08-19] MEDS: KCL 40MEQ in NS 1000ML 1,000 ML IV SCH ×2 (00:02→09:16)
[2022-08-19] MEDS: PIPERACILLIN/TAZOBACTAM SOD 3.375 GM in D5W MINI-BAG PLUS 50 ML IV SCH ×4 (04:05→21:06)
[2022-08-19] MEDS: propofoL 1,000 MG in IV 1 EA IV SCH (04:53)
[2022-08-19 05:39] LABS: ABG BASE EXCESS 0.9 (-2.0-2.0); ABG HCO3 25.1 MEQ/L (22.0-26.0); ABG O2 SATURATION 99.5 % (95.0-99.0); ABG PARTIAL PRESSURE CO2 38.7 mmHg (35.0-45.0); ABG STANDARD HCO3 25.3 MEQ/L (22.0-26.0); ABG TOTAL CO2 26.3 MEQ/L (23.0-31.0)
[2022-08-19 05:43] LABS: BASO # 0.1 10^3/uL (0.0-0.2); BASO % 0.7 % (0.0-1.0); EOS # 0.2 10^3/uL (0.0-0.5); EOS % 3.1 % (0.0-3.0); HEMATOCRIT 36.2 % (36.0-47.0); HEMOGLOBIN 10.9 g/dl (12.0-15.5); LYMPH # 0.9 10^3/uL (1.5-5.0); LYMPH % 13.4 % (24.0-44.0); MEAN CORPUSCULAR HEMOGLOBIN 28.9 pg (27.0-33.0); MEAN CORPUSCULAR HGB CONC 30.1 g/dl (32.0-36.5); MONO # 0.8 10^3/uL (0.0-0.8); MONO % 10.9 % (2.0-8.0); NEUTROPHILS % 71.5 % (36.0-66.0); PLATELET COUNT, AUTOMATED 150 10^3/uL (150-450); RED BLOOD COUNT 3.77 10^6/uL (4.00-5.40)
[2022-08-19 06:15] LABS: BLOOD UREA NITROGEN 19 MG/DL (7-18); CALCIUM LEVEL 7.8 MG/DL (8.8-10.2); CARBON DIOXIDE LEVEL 26 MEQ/L (21-32); CHLORIDE LEVEL 115 MEQ/L (98-107); CREATININE FOR GFR 0.23 MG/DL (0.55-1.30); GLOMERULAR FILTRATION RATE > 60.0 (>45); GLUCOSE, FASTING 110 MG/DL (70-100); MAGNESIUM LEVEL 1.9 MG/DL (1.8-2.4); POTASSIUM SERUM 3.7 MEQ/L (3.5-5.1); SODIUM LEVEL 145 MEQ/L (136-145)
[2022-08-19] MEDS: MIDAZOLAM 100MG/100ML-0.9%NACL 100 MG in IV 1 EA IV SCH (06:36)
[2022-08-19] MEDS: IPRATROPIUM 0.5MG/ALBUTEROL 2.5MG INH SOL UD 3ML (DUONEB) NEB SCH ×4 (07:29→20:02)
[2022-08-19] MEDS: MULTIVITAMIN/MINERALS LIQUID 15ML ORAL SYRINGE NG SCH (09:15)
[2022-08-19] MEDS: CHLORHEXIDINE GLUCONATE 0.12 % 15ML UDC (PERIDEX ORAL RINSE) MT SCH (09:15)
[2022-08-19] MEDS: ENOXAPARIN 80MG/0.8ML SYRINGE (J1650 PER 10MG) SC SCH ×2 (09:16→21:06)
[2022-08-19] MEDS: NYSTATIN 100,000 UNITS/GM TOPICAL PWD 15 GM TOP SCH ×2 (15:57→21:06)
[2022-08-19 16:08] LABS: MYCOPLASMA PNEUMONIAE IgG 1002 U/mL (0-99); MYCOPLASMA PNEUMONIAE IgM <770 U/mL (0-769)
[2022-08-19] MEDS: ACETAMINOPHEN 650 MG SUPP PR PRN ×2 (17:25→23:54)
[2022-08-19] MEDS: diazePAM 10MG/2ML SYRINGE (J3360 PER 5MG) IV PRN ×2 (18:44→23:54)
[2022-08-19] MEDS: PANTOPRAZOLE 40MG VIAL IV SCH (21:06)
[2022-08-20] VITALS (8 sets, daily range): BP systolic 100–118; BP diastolic 56–62
[2022-08-20] MEDS: PIPERACILLIN/TAZOBACTAM SOD 3.375 GM in D5W MINI-BAG PLUS 50 ML IV SCH (04:27)
[2022-08-20 05:58] LABS: BASO % 0.6 % (0.0-1.0); EOS # 0.2 10^3/uL (0.0-0.5); EOS % 3.2 % (0.0-3.0); HEMATOCRIT 33.9 % (36.0-47.0); HEMOGLOBIN 10.3 g/dl (12.0-15.5); LYMPH # 1.1 10^3/uL (1.5-5.0); LYMPH % 17.3 % (24.0-44.0); MEAN CORPUSCULAR HEMOGLOBIN 28.9 pg (27.0-33.0); MEAN CORPUSCULAR HGB CONC 30.4 g/dl (32.0-36.5); MEAN CORPUSCULAR VOLUME 95.2 fl (80.0-96.0); MONO # 0.7 10^3/uL (0.0-0.8); MONO % 10.7 % (2.0-8.0); NEUTROPHILS # 4.2 10^3/uL (1.5-8.5); NEUTROPHILS % 67.9 % (36.0-66.0); PLATELET COUNT, AUTOMATED 146 10^3/uL (150-450); RED BLOOD COUNT 3.56 10^6/uL (4.00-5.40); WHITE BLOOD COUNT 6.2 10^3/uL (4.0-10.0)
[2022-08-20 06:38] LABS: BLOOD UREA NITROGEN 15 MG/DL (7-18); CALCIUM LEVEL 8.2 MG/DL (8.8-10.2); CARBON DIOXIDE LEVEL 23 MEQ/L (21-32); CHLORIDE LEVEL 117 MEQ/L (98-107); CREATININE FOR GFR 0.26 MG/DL (0.55-1.30); GLOMERULAR FILTRATION RATE > 60.0 (>45); GLUCOSE, FASTING 92 MG/DL (70-100); MAGNESIUM LEVEL 1.8 MG/DL (1.8-2.4); POTASSIUM SERUM 3.7 MEQ/L (3.5-5.1); SODIUM LEVEL 147 MEQ/L (136-145)
[2022-08-20] MEDS: IPRATROPIUM 0.5MG/ALBUTEROL 2.5MG INH SOL UD 3ML (DUONEB) NEB SCH ×2 (07:44→11:47)
[2022-08-20] MEDS ORDERED: MORPHINE 10MG/0.5ML ORAL CONCENTRATE SOLUTION U/D SL PRN (07:55)
[2022-08-20] MEDS ORDERED: LORazepam 2 MG/ML VIAL IV PRN (07:55)
[2022-08-20] MEDS ORDERED: HYOSCYAMINE SULFATE 0.125 MG SUBL TABLET PO PRN (07:55)
[2022-08-20] MEDS ORDERED: SCOPOLAMINE 1MG TRANSDERMAL PATCH TOP PRN (07:55)
[2022-08-20] MEDS ORDERED: ATROPINE SULFATE 1% OP SOLN 2 ML BTL SL PRN (07:55)
[2022-08-20] MEDS ORDERED: FLEET ENEMA PR PRN (07:55)
[2022-08-20] MEDS: diazePAM 10MG/2ML SYRINGE (J3360 PER 5MG) IV PRN (09:15)
[2022-08-20] MEDS: NYSTATIN 100,000 UNITS/GM TOPICAL PWD 15 GM TOP SCH (09:18)
[2022-08-20] MEDS ORDERED: MORPHINE 4 MG/ML 1ML VIAL/SYRINGE IV PRN (09:45)
[2022-08-20] MEDS ORDERED: HYOS125TA PO (11:45)
[2022-08-20] MEDS ORDERED: MORP1SOL5 PO (11:45)
[2022-08-20] MEDS ORDERED: ATIV1TAB10 PO (11:45)
[2022-08-20 16:09] LABS: BODY FLUID CULTURE Not indicated. (.); LEGIONELLA ANTIGEN URINE Negative (Negative); ORGANISM ID Not indicated. (.); SPECIMEN SOURCE Urine (.); URINE STREP PNEUMONIAE ANTIGEN Negative (Negative)
== END 2022-08-20 12:56 | disposition home or self-care (01) | DRG 720 ==
LOC: M ED 23:14 → M ED INP 23:17 → M ICU 08-17 08:15
PROVIDERS: ADMIT Internal Medicine Pulmonary Disease; ATTEND Internal Medicine Pulmonary Disease
PROC: 0BH17EZ Insertion of Endotracheal Airway into Trachea, Via Natural or Artificial Opening (ICD-10-PCS; principal; 2022-08-16)
PROC: 5A1945Z Respiratory Ventilation, 24-96 Consecutive Hours (ICD-10-PCS; 2022-08-16)
PROC: 02HV33Z Insertion of Infusion Device into Superior Vena Cava, Percutaneous Approach (ICD-10-PCS; 2022-08-17)
DX: A41.9 Sepsis, unspecified organism (principal); J96.22 Acute and chronic respiratory failure with hypercapnia; J69.0 Pneumonitis due to inhalation of food and vomit; R65.21 Severe sepsis with septic shock; E87.0 Hyperosmolality and hypernatremia; J44.0 Chronic obstructive pulmonary disease with (acute) lower respiratory infection; R13.10 Dysphagia, unspecified; I27.82 Chronic pulmonary embolism; J44.1 Chronic obstructive pulmonary disease with (acute) exacerbation; G20 Parkinson's disease; Z86.16 Personal history of COVID-19; F17.200 Nicotine dependence, unspecified, uncomplicated; Z20.822 Contact with and (suspected) exposure to COVID-19; Z66 Do not resuscitate; Z79.899 Other long term (current) drug therapy; Z88.0 Allergy status to penicillin; Z74.01 Bed confinement status; N39.0 Urinary tract infection, site not specified; J96.21 Acute and chronic respiratory failure with hypoxia